=== PATIENT | male | born 1945 | race Caucasian/White ===

== ENCOUNTER 2021-06-28 15:19 | Emergency (ER) | payer MEDICARE ==
[~2021-06-28 15:19] MED LIST: ALLOPURINOL100 MG PO; ASCORBIC ACID500 MG PO; ATORVASTATIN CA40 MG PO; AUGMENTIN 875-1 EACH PO; AZITHROMYCIN250 MG PO; BUMEX1 MG PO; CARDURA2 MG PO; COREG12.5 MG PO; COREG25 MG PO; ECOTRIN81 MG PO; ELIQUIS5 MG PO; HYDRALAZINE25 MG PO; ISOSORBIDE DINI20 M1 PO; K-DUR20 MEQ PO; SYNTHROID175 MCG PO; THERAFLU EXPRE1 EAC1 PO; VITAMIN D32000 UNIT PO; VITAMIN E400 UNI1 PO; ZITHROMAX250 MG PO; ZYRTEC10 M3 PO
[2021-06-28 15:44] LABS: BASOPHIL 0.5 % (0-2); EOSINOPHIL 2.8 % (0-7); HCT 41.8 % (42.0-52.0); HGB 13.2 g/dl (13.2-18.0); LYMPHOCYTE 13.3 % (15-48); MCH 29.3 pg (25.0-31.0); MCHC 31.6 g/dL (32.0-36.0); MCV 92.7 fL (78.0-100.0); MONOCYTE 6.8 % (0-12); MPV 10.9 fL (6.0-9.5); NEUTROPHIL 76.3 % (41-80); NRBC 0; PLT 144 K/uL (150-400); RBC 4.51 M/uL (4.70-6.00); RDW 15.9 % (11.5-14.0); WBC 7.9 K/uL (4.0-10.5)
[2021-06-28 15:51] LABS: INR 1.13 (0.9-1.2); PROTHROMBIN TIME 13.9 SECONDS (11.8-13.4); PTT 26.9 SECONDS (24.4-34.7)
[2021-06-28 15:52] LABS: D-DIMER 1.49 ug/mLFEU (0.00-0.41)
[2021-06-28 16:09] LABS: ALBUMIN 3.3 g/dL (3.4-5.0); BUN/CREAT RATIO (CALC) 20.5 RATIO; CREATININE 1.61 mg/dL (0.67-1.17); GLOBULIN (CALCULATION) 3.4 g/dL; MAGNESIUM 1.9 mg/dL (1.8-2.4); POTASSIUM 4.6 mmol/L (3.5-5.1); TOTAL PROTEIN 6.7 g/dL (6.4-8.2)
[2021-06-28 16:21] LABS: LACTIC ACID 1.9 mmol/L (0.4-1.9)
[2021-06-28 17:53] LABS: BILIRUBIN NEGATIVE (NEGATIVE); BLOOD 3+ Ery/uL (NEGATIVE); GLUCOSE (U) NORMAL (NORMAL); LEUKOCYTES NEGATIVE Leu/uL (NEGATIVE); NITRITE NEGATIVE (NEGATIVE); PROTEIN NEGATIVE (NEGATIVE); UROBILINOGEN 0.2 mg/dL (0.2-1.0)
[2021-06-28 17:54] LABS: CLARITY SLIGHTLY HAZY (CLEAR); COLOR STRAW (YELLOW)
[2021-06-28 18:02] LABS: TRANSITIONAL EPITHELIAL CELLS RARE; URINARY RBC TNTC; URINARY WBC RARE
== END 2021-06-28 19:15 | disposition other institution (70) ==
LOC: FER 15:19
PROVIDERS: Emergency Medicine
DX: R55 Syncope and collapse (principal); S00.31XA Abrasion of nose, initial encounter; S00.01XA Abrasion of scalp, initial encounter; I48.91 Unspecified atrial fibrillation; E11.9 Type 2 diabetes mellitus without complications; I50.9 Heart failure, unspecified; Z95.1 Presence of aortocoronary bypass graft; Z86.74 Personal history of sudden cardiac arrest; Z88.8 Allergy status to other drugs, medicaments and biological substances; Z20.822 Contact with and (suspected) exposure to COVID-19; W19.XXXA Unspecified fall, initial encounter; Y92.39 Other specified sports and athletic area as the place of occurrence of the external cause
CPT/HCPCS: 36415; 70450; 71045; 72125; 80053; 81001; 83605; 83735; 84443; 84484; 85025; 85379; 85610; 85730; 87088; 93005; U0002